=== PATIENT | male | born 1980 | race Caucasian/White ===

== ENCOUNTER 2017-01-03 19:58 | Emergency (ER) | payer OTHER, MEDICAID ==
[~2017-01-03 19:58] MED LIST: COLACE100 MG PO; ECO81 PO; MOTRIN800 MG PO; ONDANSETRON4 M3 PO; OXYCODONE HYDRO10 M1 PO; PRI20 PO; ZES10 PO; ZOC20 PO
[2017-01-03 20:16] VITALS: BP 158/112
== END 2017-01-03 21:43 | disposition home or self-care (01) ==
LOC: ED 19:58
DX: R11.2 Nausea with vomiting, unspecified (principal); R42 Dizziness and giddiness; R51 Headache; I10 Essential (primary) hypertension; T65.891A Toxic effect of other specified substances, accidental (unintentional), initial encounter; Z88.6 Allergy status to analgesic agent; Y92.89 Other specified places as the place of occurrence of the external cause